=== PATIENT | female | born 1995 | race Caucasian/White ===

== ENCOUNTER 2022-07-24 16:52 | Emergency (ER) | payer OTHER, BC ==
[~2022-07-24] VITALS: Ht 165.1 cm; Wt 76.8 kg
[2022-07-24] VITALS (8 sets, daily range): BP systolic 102–117; BP diastolic 70–88
[2022-07-24 17:27] LABS: URINE BILIRUBIN - DIPSTICK NEGATIVE (NEGATIVE); URINE BLOOD DIPSTICK NEGATIVE (NEGATIVE); URINE COLOR YELLOW; URINE GLUCOSE - DIPSTICK NEGATIVE (NEGATIVE); URINE KETONE 15 mg/dL (NEGATIVE); URINE LEUK ESTERASE NEGATIVE (NEGATIVE); URINE PH 6.5 (4.5-8.0); URINE PROTEIN - DIPSTICK NEGATIVE (NEG-TRACE); URINE SPECIFIC GRAVITY 1.025
[2022-07-24 17:30] LABS: URINE NITRITE - DIPSTICK NEGATIVE (Negative)
== END 2022-07-24 19:30 | disposition home or self-care (01) | DRG 923 ==
LOC: ED 16:52
PROVIDERS: Nurse Practitioner
DX: Z04.1 Encounter for examination and observation following transport accident (principal); Z3A.24 24 weeks gestation of pregnancy; F41.9 Anxiety disorder, unspecified; V43.52XA Car driver injured in collision with other type car in traffic accident, initial encounter